=== PATIENT | male | born 1930 | race Caucasian/White ===

== ENCOUNTER 2018-06-09 22:51 | Inpatient (IN) | payer MEDICARE, OTHER ==
[~2018-06-09] VITALS: Ht 175.3 cm; Wt 83.0 kg
[~2018-06-09 22:51] MED LIST: ACET-1008 PO; ALPR-304 PO; ASPI81TA52 PO; ATOR10TA87 PO; CITA40TA22 PO; DEXT1DRO6 OP; FLUT10SP; GABA-338 PO; HYDR-3964 PO; LEVO50TA67 PO; NIA500ERT PO; ONDANSETRON PO; PANT20TA2 PO; ZES2.5T PO
[2018-06-09 23:33] LABS: ALANINE AMINOTRANSFERASE 16 U/L (12-78); ALBUMIN 2.6 G/DL (3.4-5.0); ALBUMIN/GLOBULIN RATIO 0.7 (1.1-1.5); ALKALINE PHOSPHATASE 106 IU/L (46-116); ANION GAP 6 (8-16); ASPARTATE AMINO TRANSFERASE 13 U/L (10-37); BILIRUBIN,TOTAL 0.5 MG/DL (0.1-1.0); BLOOD UREA NITROGEN 11 MG/DL (7-18); BUN/CREATININE RATIO 11.3 (5.4-32.0); CHLORIDE 100 MMOL/L (99-107); CREATININE 0.97 MG/DL (0.60-1.10); GLUCOSE 168 MG/DL (70-104); POTASSIUM 4.2 MMOL/L (3.5-5.1); SODIUM 137 MMOL/L (135-145); TOTAL CARBON DIOXIDE 31.1 MMOL/L (24-32); TOTAL PROTEIN 6.3 G/DL (6.4-8.2); eGFR 73 ML/MIN
[2018-06-09 23:38] LABS: BASOPHILS % (AUTO) 0.2 % (0-1); EOSINOPHILS # (AUTO) 0.2 X10'3 (0-0.9); EOSINOPHILS % (AUTO) 1.2 % (0-6); HEMATOCRIT 40.8 % (42.0-52.0); HEMOGLOBIN 13.8 g/dl (14.0-17.9); LYMPHOCYTES # (AUTO) 1.2 X10'3 (1.1-4.8); LYMPHOCYTES % (AUTO) 8.2 % (21-51); MEAN CORPUSCULAR HEMOGLOBIN 33.5 PG (27.0-31.0); MEAN CORPUSCULAR HGB CONC 33.8 % (33.0-36.5); MEAN PLATELET VOLUME 8.7 FL (7.4-10.4); MONOCYTES # (AUTO) 1.2 X10'3 (0-0.9); MONOCYTES % (AUTO) 8.2 % (2-12); NEUTROPHILS # (AUTO) 11.6 X10'3 (1.8-7.7); NEUTROPHILS % (AUTO) 82.2 % (42-75); PLATELET COUNT 196 X10'3 (140-440); RED BLOOD COUNT 4.12 X10'6 (4.70-6.10); RED CELL DISTRIBUTION WIDTH 14.4 % (11.5-14.5); WHITE BLOOD COUNT 14.1 X10'3 (4.5-11.0)
[2018-06-09] MEDS ORDERED: dexamethasone sod phosphate 10mg/ml inj IV STA (23:43)
[2018-06-09] MEDS ORDERED: CefTRIAXone 2gm/D5W 50ml 50 ML IV ONE (23:45)
[2018-06-09] MEDS ORDERED: acetaminophen 325mg tablet PO ONE (23:45)
[2018-06-09] MEDS ORDERED: normal saline 1000ML IV soln IV ONE (23:45)
[2018-06-09] MEDS ORDERED: vancomycin/NS 1 GM ADD-VANTAGE 250 ML IV ONE (23:45)
[2018-06-09] MEDS ORDERED: piperacillin/tazo 3.375gm/50ml 50 ML IV ONE (23:45)
[2018-06-10] MEDS ORDERED: bisacodyl 10mg suppository rectal RC PRN (00:10)
[2018-06-10] MEDS ORDERED: ondansetron/PF 4mg/2ml inj IV PRN (00:10)
[2018-06-10] MEDS ORDERED: HYDROcodone/acetaminophen 5mg/325mg tablet PO PRN (00:10)
[2018-06-10] MEDS ORDERED: mag hydrox/Alum hydrox/simeth 30ml oral suspension PO PRN (00:10)
[2018-06-10] MEDS ORDERED: acetaminophen 650mg rectal suppository RC PRN (00:10)
[2018-06-10] MEDS ORDERED: metoclopramide 5 mg/ml inj IV PRN (00:10)
[2018-06-10] MEDS ORDERED: HYDROcodone/acetaminophen 10/325mg tab PO PRN (00:10)
[2018-06-10] MEDS ORDERED: magnesium hydroxide 30ml (MOM) UD suspension PO PRN (00:10)
[2018-06-10] MEDS ORDERED: diphenhydrAMINE 50 mg/ml inj IV PRN (00:10)
[2018-06-10] MEDS ORDERED: morphine 2 MG/ML inj. syringe IV PRN ×2 (00:10)
[2018-06-10] MEDS ORDERED: HYDROmorphone 1 mg/ml syringe IV PRN ×2 (00:10)
[2018-06-10] MEDS ORDERED: diphenhydrAMINE 25mg capsule PO PRN (00:10)
[2018-06-10] MEDS ORDERED: acetaminophen 325mg tablet PO PRN (00:10)
[2018-06-10] MEDS ORDERED: hydrALAZINE 20mg/ml inj. IV PRN (00:30)
[2018-06-10 00:50] VITALS: BP 108/65
[2018-06-10] MEDS: normal saline 1000ml 1,000 ML IV SCH ×3 (02:04→20:08)
[2018-06-10 02:30] LABS: LIPASE 71 U/L (73-393); MAGNESIUM 1.8 MG/DL (1.5-2.4); PHOSPHORUS 3.3 MG/DL (2.3-4.5)
[2018-06-10 06:00] VITALS: BP 132/70
[2018-06-10 06:49] LABS: HEMOGLOBIN A1C 6.5 % (4.5-6.2)
[2018-06-10 07:00] LABS: D-DIMER 1.53 MG/L FEU (0-0.50); PARTIAL THROMBOPLASTIN TIME 31 SECONDS (22-32); PROTHROMBIN TIME 10.3 SECONDS (9.0-12.0)
[2018-06-10] MEDS ORDERED: azithromycin 250mg tablet PO SCH (08:00)
[2018-06-10] MEDS: methylPREDNISolone sod succ 125mg/2ml vial IV SCH ×2 (08:12→19:12)
[2018-06-10] MEDS: docusate sod 100mg capsule PO SCH ×2 (08:13→20:00)
[2018-06-10] MEDS: CefTRIAXone/D5W-Rocephin 1gm 50 ML IV SCH ×2 (08:13→19:14)
[2018-06-10] MEDS: heparin, porcine 5000 units/ml vial SQ SCH ×2 (08:15→19:12)
[2018-06-10 10:00] VITALS: BP 147/74
[2018-06-10] MEDS ORDERED: dextrose ORAL solution 15 GM/59 ML bottle PO PRN ×2 (11:45)
[2018-06-10] MEDS ORDERED: glucagon, human recombinant 1mg kit SUBCUT PRN (11:45)
[2018-06-10] MEDS ORDERED: dextrose 50%-water 50ml dispensing syringe IV PRN ×2 (11:45)
[2018-06-10] MEDS ORDERED: insulin regular, human vial - multi-dose SQ SCH (11:45)
[2018-06-10 18:00] VITALS: BP 145/72
[2018-06-10] MEDS: insulin Lispro (HumaLOG) vial - multi-dose SQ SCH (19:08)
[2018-06-10] MEDS: insulin glargine (Lantus) pen - multi-dose SQ SCH (20:53)
[2018-06-10] MEDS ORDERED: temazepam 15mg capsule PO PRN (21:00)
[2018-06-10] MEDS: lactobacillus rhamnosus 10,000 MMU CELLS/CAPSULE PO SCH (21:10)
[2018-06-10 22:00] VITALS: BP 118/81
[2018-06-11 06:00] VITALS: BP 119/64
[2018-06-11] MEDS ORDERED: vancomycin/NS 1 GM ADD-VANTAGE 250 ML IV SCH (06:00)
[2018-06-11] MEDS: normal saline 1000ml 1,000 ML IV SCH ×2 (07:30→16:08)
[2018-06-11] MEDS: vancomycin inj 1,250 MG in normal saline 250ml IV soln 250 ML IV SCH ×2 (07:31→18:23)
[2018-06-11] MEDS: docusate sod 100mg capsule PO SCH ×2 (07:32→19:08)
[2018-06-11] MEDS: methylPREDNISolone sod succ/PF 40mg inj. IV SCH ×2 (07:32→20:49)
[2018-06-11] MEDS: lactobacillus rhamnosus 10,000 MMU CELLS/CAPSULE PO SCH ×2 (07:33→19:08)
[2018-06-11] MEDS: heparin, porcine 5000 units/ml vial SQ SCH ×2 (07:33→20:00)
[2018-06-11 07:48] LABS: BASOPHILS % (AUTO) 0 % (0-1); EOSINOPHILS # (AUTO) 0.2 X10'3 (0-0.9); EOSINOPHILS % (AUTO) 1.4 % (0-6); HEMATOCRIT 38.7 % (42.0-52.0); HEMOGLOBIN 12.6 g/dl (14.0-17.9); LYMPHOCYTES # (AUTO) 0.9 X10'3 (1.1-4.8); LYMPHOCYTES % (AUTO) 5.5 % (21-51); MEAN CORPUSCULAR HEMOGLOBIN 32.8 PG (27.0-31.0); MEAN CORPUSCULAR HGB CONC 32.7 % (33.0-36.5); MEAN CORPUSCULAR VOLUME 100.3 FL (78-98); MEAN PLATELET VOLUME 8.9 FL (7.4-10.4); MONOCYTES # (AUTO) 0.8 X10'3 (0-0.9); MONOCYTES % (AUTO) 4.9 % (2-12); NEUTROPHILS # (AUTO) 14.5 X10'3 (1.8-7.7); NEUTROPHILS % (AUTO) 88.2 % (42-75); PLATELET COUNT 199 X10'3 (140-440); RED BLOOD COUNT 3.86 X10'6 (4.70-6.10); WHITE BLOOD COUNT 16.5 X10'3 (4.5-11.0)
[2018-06-11 08:15] LABS: ALANINE AMINOTRANSFERASE 18 U/L (12-78); ALBUMIN 2.4 G/DL (3.4-5.0); ALBUMIN/GLOBULIN RATIO 0.7 (1.1-1.5); ALKALINE PHOSPHATASE 80 IU/L (46-116); ANION GAP 6 (8-16); ASPARTATE AMINO TRANSFERASE 12 U/L (10-37); BILIRUBIN,TOTAL 0.5 MG/DL (0.1-1.0); BLOOD UREA NITROGEN 15 MG/DL (7-18); BUN/CREATININE RATIO 14.7 (5.4-32.0); CALCIUM 8.4 MG/DL (8.5-10.1); CHLORIDE 106 MMOL/L (99-107); CREATININE 1.02 MG/DL (0.60-1.10); GLUCOSE 177 MG/DL (70-104); POTASSIUM 4.5 MMOL/L (3.5-5.1); SODIUM 143 MMOL/L (135-145); TOTAL CARBON DIOXIDE 30.8 MMOL/L (24-32); eGFR 69 ML/MIN
[2018-06-11] MEDS: insulin Lispro (HumaLOG) vial - multi-dose SQ SCH ×3 (08:31→18:22)
[2018-06-11 11:21] VITALS: BP 113/85
[2018-06-11] MEDS ORDERED: LORazepam 2 mg/ml vial IV PRN (17:50)
[2018-06-11 18:00] VITALS: BP 133/79
[2018-06-11] MEDS: insulin glargine (Lantus) pen - multi-dose SQ SCH (20:48)
[2018-06-11 22:00] VITALS: BP 115/61
[2018-06-12] MEDS: normal saline 1000ml 1,000 ML IV SCH ×3 (02:08→22:08)
[2018-06-12 06:00] VITALS: BP 129/70
[2018-06-12 06:04] LABS: BASOPHILS % (AUTO) 0 % (0-1); EOSINOPHILS # (AUTO) 0.2 X10'3 (0-0.9); EOSINOPHILS % (AUTO) 1.2 % (0-6); HEMATOCRIT 38.7 % (42.0-52.0); HEMOGLOBIN 12.8 g/dl (14.0-17.9); LYMPHOCYTES # (AUTO) 0.8 X10'3 (1.1-4.8); LYMPHOCYTES % (AUTO) 5.9 % (21-51); MEAN PLATELET VOLUME 9.1 FL (7.4-10.4); MONOCYTES # (AUTO) 0.6 X10'3 (0-0.9); MONOCYTES % (AUTO) 4.6 % (2-12); NEUTROPHILS # (AUTO) 12.4 X10'3 (1.8-7.7); NEUTROPHILS % (AUTO) 88.3 % (42-75); PLATELET COUNT 190 X10'3 (140-440); RED BLOOD COUNT 3.87 X10'6 (4.70-6.10); RED CELL DISTRIBUTION WIDTH 14.8 % (11.5-14.5)
[2018-06-12 06:22] LABS: ALANINE AMINOTRANSFERASE 29 U/L (12-78); ALBUMIN 2.5 G/DL (3.4-5.0); ALBUMIN/GLOBULIN RATIO 0.7 (1.1-1.5); ALKALINE PHOSPHATASE 78 IU/L (46-116); ANION GAP 5 (8-16); ASPARTATE AMINO TRANSFERASE 22 U/L (10-37); BILIRUBIN,TOTAL 0.6 MG/DL (0.1-1.0); BLOOD UREA NITROGEN 19 MG/DL (7-18); BUN/CREATININE RATIO 20.9 (5.4-32.0); CALCIUM 8.4 MG/DL (8.5-10.1); CHLORIDE 108 MMOL/L (99-107); CREATININE 0.91 MG/DL (0.60-1.10); GLUCOSE 153 MG/DL (70-104); POTASSIUM 4.1 MMOL/L (3.5-5.1); SODIUM 142 MMOL/L (135-145); TOTAL CARBON DIOXIDE 29.1 MMOL/L (24-32); TOTAL PROTEIN 6.1 G/DL (6.4-8.2); eGFR 79 ML/MIN
[2018-06-12] MEDS: lactobacillus rhamnosus 10,000 MMU CELLS/CAPSULE PO SCH ×2 (07:32→19:19)
[2018-06-12] MEDS: docusate sod 100mg capsule PO SCH ×2 (07:32→19:19)
[2018-06-12] MEDS: methylPREDNISolone sod succ/PF 40mg inj. IV SCH ×2 (07:47→19:26)
[2018-06-12] MEDS: heparin, porcine 5000 units/ml vial SQ SCH ×2 (07:49→19:26)
[2018-06-12] MEDS: vancomycin inj 1,250 MG in normal saline 250ml IV soln 250 ML IV SCH ×2 (07:49→19:20)
[2018-06-12] MEDS: insulin Lispro (HumaLOG) vial - multi-dose SQ SCH ×2 (07:51→12:38)
[2018-06-12 10:00] VITALS: BP 161/90
[2018-06-12 18:00] VITALS: BP 147/79
[2018-06-12] MEDS ORDERED: VANCOMYCIN LEVEL IV ONE (18:30)
[2018-06-12] MEDS: insulin glargine (Lantus) pen - multi-dose SQ SCH (21:03)
[2018-06-12 22:00] VITALS: BP 136/58
[2018-06-13 06:00] VITALS: BP 144/82
[2018-06-13 06:12] LABS: BASOPHILS # (AUTO) 0.1 X10'3 (0-0.2); BASOPHILS % (AUTO) 0.7 % (0-1); EOSINOPHILS # (AUTO) 0.1 X10'3 (0-0.9); EOSINOPHILS % (AUTO) 0.8 % (0-6); HEMATOCRIT 40.3 % (42.0-52.0); HEMOGLOBIN 13.5 g/dl (14.0-17.9); LYMPHOCYTES # (AUTO) 0.7 X10'3 (1.1-4.8); LYMPHOCYTES % (AUTO) 6.2 % (21-51); MEAN CORPUSCULAR HEMOGLOBIN 33.1 PG (27.0-31.0); MEAN CORPUSCULAR HGB CONC 33.5 % (33.0-36.5); MEAN PLATELET VOLUME 9.2 FL (7.4-10.4); MONOCYTES % (AUTO) 8.3 % (2-12); NEUTROPHILS # (AUTO) 10.1 X10'3 (1.8-7.7); PLATELET COUNT 194 X10'3 (140-440); RED BLOOD COUNT 4.07 X10'6 (4.70-6.10); RED CELL DISTRIBUTION WIDTH 14.2 % (11.5-14.5)
[2018-06-13 06:32] LABS: ALANINE AMINOTRANSFERASE 62 U/L (12-78); ALBUMIN 2.6 G/DL (3.4-5.0); ALBUMIN/GLOBULIN RATIO 0.7 (1.1-1.5); ALKALINE PHOSPHATASE 81 IU/L (46-116); ANION GAP 9 (8-16); ASPARTATE AMINO TRANSFERASE 41 U/L (10-37); BILIRUBIN,TOTAL 0.7 MG/DL (0.1-1.0); BLOOD UREA NITROGEN 21 MG/DL (7-18); BUN/CREATININE RATIO 22.6 (5.4-32.0); CALCIUM 8.1 MG/DL (8.5-10.1); CHLORIDE 106 MMOL/L (99-107); CREATININE 0.93 MG/DL (0.60-1.10); GLUCOSE 152 MG/DL (70-104); POTASSIUM 3.9 MMOL/L (3.5-5.1); SODIUM 143 MMOL/L (135-145); TOTAL CARBON DIOXIDE 28.3 MMOL/L (24-32); TOTAL PROTEIN 6.2 G/DL (6.4-8.2); eGFR 77 ML/MIN
[2018-06-13] MEDS: vancomycin inj 1,250 MG in normal saline 250ml IV soln 250 ML IV SCH (07:17)
[2018-06-13] MEDS: methylPREDNISolone sod succ/PF 40mg inj. IV SCH ×2 (07:17→21:46)
[2018-06-13] MEDS: lactobacillus rhamnosus 10,000 MMU CELLS/CAPSULE PO SCH ×2 (07:18→21:46)
[2018-06-13] MEDS: normal saline 1000ml 1,000 ML IV SCH ×2 (07:18→17:36)
[2018-06-13] MEDS: docusate sod 100mg capsule PO SCH ×2 (07:18→20:00)
[2018-06-13] MEDS: heparin, porcine 5000 units/ml vial SQ SCH ×2 (07:18→21:46)
[2018-06-13] MEDS: vancomycin/NS 1 GM ADD-VANTAGE 250 ML IV SCH ×2 (07:41→21:25)
[2018-06-13] MEDS: insulin Lispro (HumaLOG) vial - multi-dose SQ SCH ×3 (09:30→19:35)
[2018-06-13 10:00] VITALS: BP 132/63
[2018-06-13 18:00] VITALS: BP 146/76
[2018-06-13 22:00] VITALS: BP 140/79
[2018-06-13] MEDS: insulin glargine (Lantus) pen - multi-dose SQ SCH (22:02)
[2018-06-14 02:00] VITALS: BP 145/74
[2018-06-14] MEDS: normal saline 1000ml 1,000 ML IV SCH ×2 (05:53→14:08)
[2018-06-14 06:00] VITALS: BP 117/69
[2018-06-14 07:04] LABS: BASOPHILS % (AUTO) 0 % (0-1); EOSINOPHILS # (AUTO) 0.1 X10'3 (0-0.9); EOSINOPHILS % (AUTO) 1.4 % (0-6); HEMATOCRIT 37.7 % (42.0-52.0); HEMOGLOBIN 12.4 g/dl (14.0-17.9); LYMPHOCYTES # (AUTO) 0.6 X10'3 (1.1-4.8); LYMPHOCYTES % (AUTO) 6.9 % (21-51); MEAN CORPUSCULAR HEMOGLOBIN 32.8 PG (27.0-31.0); MEAN CORPUSCULAR HGB CONC 32.9 % (33.0-36.5); MEAN CORPUSCULAR VOLUME 99.8 FL (78-98); MEAN PLATELET VOLUME 8.9 FL (7.4-10.4); MONOCYTES # (AUTO) 0.5 X10'3 (0-0.9); MONOCYTES % (AUTO) 5.4 % (2-12); NEUTROPHILS % (AUTO) 86.3 % (42-75); PLATELET COUNT 161 X10'3 (140-440); RED BLOOD COUNT 3.78 X10'6 (4.70-6.10); RED CELL DISTRIBUTION WIDTH 14.5 % (11.5-14.5); WHITE BLOOD COUNT 9.2 X10'3 (4.5-11.0)
[2018-06-14 07:15] LABS: ALBUMIN 2.4 G/DL (3.4-5.0); ALBUMIN/GLOBULIN RATIO 0.8 (1.1-1.5); ANION GAP 5 (8-16); BLOOD UREA NITROGEN 18 MG/DL (7-18); BUN/CREATININE RATIO 23.1 (5.4-32.0); CALCIUM 7.9 MG/DL (8.5-10.1); CHLORIDE 109 MMOL/L (99-107); CREATININE 0.78 MG/DL (0.60-1.10); GLUCOSE 135 MG/DL (70-104); POTASSIUM 3.4 MMOL/L (3.5-5.1); SODIUM 142 MMOL/L (135-145); TOTAL PROTEIN 5.5 G/DL (6.4-8.2); eGFR > 90 ML/MIN
[2018-06-14 07:16] LABS: ALANINE AMINOTRANSFERASE 46 U/L (12-78); ALKALINE PHOSPHATASE 66 IU/L (46-116); ASPARTATE AMINO TRANSFERASE 23 U/L (10-37)
[2018-06-14] MEDS: heparin, porcine 5000 units/ml vial SQ SCH (07:27)
[2018-06-14] MEDS: vancomycin/NS 1 GM ADD-VANTAGE 250 ML IV SCH (07:27)
[2018-06-14] MEDS: methylPREDNISolone sod succ/PF 40mg inj. IV SCH (07:27)
[2018-06-14] MEDS: lactobacillus rhamnosus 10,000 MMU CELLS/CAPSULE PO SCH (07:27)
[2018-06-14] MEDS: docusate sod 100mg capsule PO SCH (07:28)
[2018-06-14] MEDS: insulin Lispro (HumaLOG) vial - multi-dose SQ SCH ×2 (08:53→13:39)
[2018-06-14 10:00] VITALS: BP 154/86
[2018-06-14] MEDS ORDERED: VANCOMYCIN LEVEL IV ONE (19:30)
== END 2018-06-14 14:45 | DRG 871 ==
LOC: ER 22:52 → ED HOLD 06-10 00:08 → ORTHO 4S 06-10 00:54
PROVIDERS: ADMIT Family Medicine; ATTEND Internal Medicine
DX: A41.9 Sepsis, unspecified organism (principal); J18.1 Lobar pneumonia, unspecified organism; J44.1 Chronic obstructive pulmonary disease with (acute) exacerbation; I69.351 Hemiplegia and hemiparesis following cerebral infarction affecting right dominant side; J44.0 Chronic obstructive pulmonary disease with (acute) lower respiratory infection; I10 Essential (primary) hypertension; F03.90 Unspecified dementia, unspecified severity, without behavioral disturbance, psychotic disturbance, mood disturbance, and anxiety; E11.9 Type 2 diabetes mellitus without complications; Z66 Do not resuscitate; E78.00 Pure hypercholesterolemia, unspecified; Z79.899 Other long term (current) drug therapy
CPT/HCPCS: 36415; 71045; 80053; 80202; 82948; 83036; 83605; 83690; 83735; 83880; 84100; 84443; 84484; 85025; 85379; 85610; 85730; 87040; 87070; 87077; 87186; 92616; 93005; 93306; 94760; 96365; 96368; 96375; 97116; 97161; 97535; 99285; G0378; J0696; J1100; J1644; J1815; J2543; J2920; J2930; J3370; J7030